=== PATIENT | male | born 1990 | race Caucasian/White ===

== ENCOUNTER 2018-07-02 12:05 | Emergency (ER) | payer MEDICAID ==
[~2018-07-02] VITALS: Ht 175.3 cm; Wt 90.7 kg
[2018-07-02 12:05] VITALS: BP_SYST 152
[2018-07-02] MEDS ORDERED: LIDOCAINE 1% 10 MG/ML, 20 ML MDV IJ ONE (12:30)
[2018-07-02] MEDS ORDERED: BACITRACIN 1 GM OINT TP ONE (12:30)
[2018-07-02] MEDS ORDERED: DIPH-TET-PERTUS Vaccine 0.5 ML VIAL (ADACEL) IM ONE (12:30)
[2018-07-02 13:15] VITALS: BP_SYST 148
== END 2018-07-02 13:15 ==
LOC: SED 12:05
DX: S61.200A Unspecified open wound of right index finger without damage to nail, initial encounter (principal); S61.202A Unspecified open wound of right middle finger without damage to nail, initial encounter; Y04.1XXA Assault by human bite, initial encounter; Y93.89 Activity, other specified; Y92.89 Other specified places as the place of occurrence of the external cause; Y99.8 Other external cause status
CPT/HCPCS: 90715; 99283